=== PATIENT | female | born 1955 | race Caucasian/White ===

== ENCOUNTER → 2019-05-02 | Outpatient (CLI) | payer OTHER | LOC: RAD 13:57 | DX: J98.4 Other disorders of lung (principal) ==

== ENCOUNTER → 2021-09-12 | Outpatient (CLI) | payer OTHER | LOC: RAD 13:37 | PROVIDERS: ATTEND Nurse Practitioner | DX: Z12.31 Encounter for screening mammogram for malignant neoplasm of breast (principal) ==

== ENCOUNTER → 2021-12-27 | Outpatient (CLI) | payer OTHER | LOC: RAD 11:36 | PROVIDERS: ATTEND Nurse Practitioner | DX: M16.12 Unilateral primary osteoarthritis, left hip (principal); M25.752 Osteophyte, left hip; M85.852 Other specified disorders of bone density and structure, left thigh ==